=== PATIENT | male | born 1985 | race Caucasian/White ===

== ENCOUNTER 2017-01-14 02:13 | Emergency (ER) | payer OTHER ==
[2017-01-14 03:36] LABS: Hematocrit 48 % (42-52); Hemoglobin 16.3 g/dl (14.0-18.0); Mean Corpuscular HGB Conc 34 g/dl (31-36); Mean Corpuscular Hemoglobin 30 pg (27-31); Mean Corpuscular Volume 88 fL (80-94); Mean Platelet Volume 9 um3 (7.4-10.4); Red Blood Count 5.46 10^6/ul (4.0-5.4); Red Cell Distribution Width 14 % (10.5-15); White Blood Count 6.1 10^3/ul (3.5-10.8)
[2017-01-14 03:47] LABS: ALT 12 U/L (7-52); AST 17 U/L (13-39); Albumin 4.5 g/dL (3.2-5.2); Alkaline Phosphatase 62 U/L (34-104); Anion Gap 12 mmol/L (2-11); BUN/Creatinine Ratio 13.7 (8-20); Blood Urea Nitrogen 10 mg/dL (6-24); CO2 Carbon Dioxide 23 mmol/L (22-32); Calcium 9.3 mg/dL (8.6-10.3); Chloride 105 mmol/L (101-111); EGFR African American 163.4 (>60); Glucose 108 mg/dL (70-100); Potassium 3.6 mmol/L (3.5-5.0); Sodium 140 mmol/L (133-145); Total Protein 7.5 g/dL (6.4-8.9)
[2017-01-14 04:21] LABS: Acetaminophen < 15 mcg/mL; Alcohol 307 mg/dL (<10); Salicylate < 2.50 mg/dL (<30)
[2017-01-14 04:31] LABS: TSH (Thyroid Stimulating Horm) 0.62 mcIU/mL (0.34-5.60)
--- NOTE | 2017-01-14 06:38 | ED ---
León Hernández Rebecca, scribed for Radu Aguilera on 01/14/17 at 0221 . Substance Abuse/Use - HPI Summary HPI Summary: Pt is a 31 y/o M BIBA, accompanied by police as a 2208, who comes to ED p/w EtOH intoxication characterized as stuporous. When asked, pt states he is unsure why he is in the ED and states "they gave me my arm." Reports he had one drink tonight, denies ingestion of anything other drugs. States his friends called EMS. Denies any pain. No PMHx psychiatric problems. Level 5 caveat due to EtOH intoxication. - History Of Current Complaint Chief Complaint: EDSubstanceAbuse Stated Complaint: 2208 Time Seen by Provider: 01/14/17 02:19 Hx Obtained From: Patient, EMS Ingestion History: Type/Name Of Drug - EtOH Overdose Characteristics: Oral Character: Stuporous Associated Signs And Symptoms: Other: - Denies any pain PMH/Surg Hx/FS Hx/Imm Hx Infectious Disease History: No Infectious Disease History: Denies: Traveled Outside the [place] in Last 30 Days Review of Systems - ROS Summary Review of Systems Summary: Level 5 caveat due to EtOH intoxication. Negative: Arthralgia - Denies any pain Positive: Other - Intoxicated All Other Systems Reviewed And Are Negative: No Physical Exam - Summary Physical Exam Summary: Level 5 caveat due to EtOH intoxication Appearance: Well appearing, no pain distress Skin: warm, dry, reflects adequate perfusion Head/face: normal Eyes: EOMI, AISHWARYA ENT: normal Neck: supple, nontender Resp: CTA, breath sounds present Cardio: RRR, pulses symm Musc: normal, strength/ROM intact Neuro: sensory motor intact, intoxicated, giving an incoherent history Triage Information Reviewed: Yes Vital Signs On Initial Exam: Initial Vitals Temp Pulse Resp BP Pulse Ox 97.2 F 116 18 166/105 98 01/14/17 02:18 01/14/17 02:18 01/14/17 02:18 01/14/17 02:18 01/14/17 02:18 Vital Signs Reviewed: Yes Diagnostics - Vital Signs Vital Signs Temp Pulse Resp BP Pulse Ox 01/14/17 02:18 97.2 F 116 18 166/105 98 - Laboratory Result Diagrams: 01/14/17 03:22 06/02/17 03:22 Lab Statement: Any lab studies that have been ordered have been reviewed, and results considered in the medical decision making process. Course/Dx - Course Assessment/Plan: Pt is a 31 y/o M BIBA accompanied by police as a 2209 who comes to ED p/w intoxication. Reports his friends called EMS and that he only had one drink. Denies any pain. Level 5 caveat due to EtOH intoxication. Serum alcohol: 307. Pt will be D/C to home with a Dx of alcohol intoxication. - Diagnoses Provider Diagnoses: Alcohol intoxication Discharge - Discharge Plan Condition: Stable Disposition: HOME Patient Education Materials: Alcohol Intoxication (ED) Referrals: Non Staff,Doctor [Primary Care Provider] - 3 Days The documentation as recorded by the León bella Rebecca accurately reflects the service I personally performed and the decisions made by , Radu Aguilera.
[2017-01-14 09:17] VITALS: BP 138/88
== END 2017-01-14 08:51 | disposition home or self-care (01) ==
LOC: ED 02:13
DX: F10.129 Alcohol abuse with intoxication, unspecified (principal)
CPT/HCPCS: 36415; 80053; 80320; 80329; 84443; 85025; 99282; G0480